=== PATIENT | male | born 1970 | race Caucasian/White ===

== ENCOUNTER 2019-05-31 11:52 | Emergency (ER) | payer OTHER ==
[2019-05-31 12:45] LABS: Basophils # (A) 0.1 k/uL (0-0.2); Basophils % (A) 1 %; Eosinophils # (A) 0.1 k/uL (0-0.7); Eosinophils % (A) 2 %; HCT 51.8 % (39.0-53.0); HGB 17.3 gm/dL (13.0-17.5); Lymphocytes # (A) 1.9 k/uL (1.0-4.8); Lymphocytes % (A) 28 %; MCH 34.4 pg (25.0-35.0); MCHC 33.4 g/dL (31.0-37.0); Macrocytosis Slight; Mean Platelet Volume 9.3; Monocytes # (A) 0.4 k/uL (0-1.0); Monocytes % (A) 6 %; Neutrophils % (A) 61 %; RBC 5.03 m/uL (4.30-5.90); WBC 6.7 k/uL (3.8-10.6)
[2019-05-31 12:53] LABS: ALT 169 U/L (21-72); AST 210 U/L (17-59); African American GFR (CKD) >90 (>60 ml/min/1.73 sqM); Albumin 4.1 g/dL (3.5-5.0); Alkaline Phosphatase 59 U/L (38-126); Anion Gap 13 mmol/L; Blood Urea Nitrogen 18 mg/dL (9-20); Calcium 9.3 mg/dL (8.4-10.2); Carbon Dioxide 21 mmol/L (22-30); Chloride 100 mmol/L (98-107); Glucose 124 mg/dL (74-99); INR 1.3 (<1.2); Partial Thromboplastin Time 28.9 sec (22.0-30.0); Potassium 4.3 mmol/L (3.5-5.1); Prothrombin Time 13.4 sec (9.0-12.0); Sodium 134 mmol/L (137-145); Total Bilirubin 1.8 mg/dL (0.2-1.3); Total Protein 7.3 g/dL (6.3-8.2)
[2019-05-31 13:04] LABS: Platelet Count 89 k/uL (150-450)
[2019-05-31 13:05] LABS: Basophilic Stippling Present
--- NOTE | 2019-05-31 13:45 | ED ---
General Adult HPI - General Chief complaint: Extremity Problem,Nontraumatic Stated complaint: Poss blood clot Time Seen by Provider: 05/31/19 12:00 Source: patient, family Mode of arrival: wheelchair Limitations: no limitations - History of Present Illness Initial comments: The patient is a 48-year-old male with past medical history of A. fib and lower extremity DVT who presents emergency room with reported bilateral lower extremity swelling. States the swelling has been present for 3 days. He denies any numbness, tingling or pain in his lower extremities. He is concerned for DVT as he has a history of DVT in the past. States he had a cardiac ablation and shortly afterwards developed a blood clot. This required him to have multiple endovascular surgeries on his lower extremities. He was on Coumadin for 6 months and was then taken off. This was approximately 4 years ago. Reports to shortness of breath. States he cannot lay flat while sleeping. Also admits to an exertional shortness of breath. Denies a history of PE. The patient has a history of atrial fibrillation. He presents and is currently in A. fib. 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 Director Telemetry who is Dr. Rascon did state that he was in A. fib and adjust the patient's medications. He put him on Toprol 50 mg twice a day. Patient did take his medications this morning around 8 AM. Denies any missed doses. He is not on any anticoagulation currently. He denies any chest pain. No ripping or tearing sensation to his back. He denies a history of congestive heart failure. No abdominal pain. There are no alleviating, precipitating or modifying factors - Related Data Home Medications Medication Instructions Recorded Confirmed Aspirin 81 mg PO HS 01/05/16 05/31/19 Metoprolol Tartrate [Lopressor] 50 mg PO BID 05/31/19 05/31/19 Allergies Allergy/AdvReac Type Severity Reaction Status Date / Time No Known Allergies Allergy Verified 05/31/19 12:25 Review of Systems ROS Statement: Those systems with pertinent positive or pertinent negative responses have been documented in the HPI. ROS Other: All systems not noted in ROS Statement are negative. Past Medical History Past Medical History: Atrial Fibrillation, Hypertension Additional Past Medical History / Comment(s): tachycardia History of Any Multi-Drug Resistant Organisms: None Reported Past Surgical History: Orthopedic Surgery Additional Past Surgical History / Comment(s): cardiac ablation Past Psychological History: No Psychological Hx Reported Smoking Status: Current every day smoker Past Alcohol Use History: Daily, Heavy Past Drug Use History: None Reported, Marijuana General Exam Limitations: no limitations General appearance: alert, in no apparent distress Head exam: Present: atraumatic, normocephalic Eye exam: Present: normal appearance, PERRL, EOMI ENT exam: Present: normal exam, mucous membranes moist Neck exam: Present: normal inspection Respiratory exam: Present: rales (at the bases) Cardiovascular Exam: Present: tachycardia, irregular rhythm GI/Abdominal exam: Present: soft. Absent: distended, tenderness, guarding Extremities exam: Present: pedal edema (b/l pedal edema) Neurological exam: Present: alert, oriented X3, CN II-XII intact Psychiatric exam: Present: normal affect, normal mood Skin exam: Present: warm, dry, intact Course Vital Signs 05/31/19 05/31/19 05/31/19 11:55 12:26 12:38 Temperature 97.5 F L Pulse Rate 72 154 H Respiratory 18 16 18 Rate Blood Pressure 154/36 107/90 O2 Sat by Pulse 100 98 Oximetry 05/31/19 05/31/19 05/31/19 13:36 14:27 15:33 Temperature Pulse Rate 130 H 140 H 138 H Respiratory 18 16 16 Rate Blood Pressure 106/79 96/80 111/88 O2 Sat by Pulse 100 99 97 Oximetry 05/31/19 15:54 Temperature 98.9 F Pulse Rate 114 H Respiratory 16 Rate Blood Pressure 104/90 O2 Sat by Pulse 96 Oximetry EKG Findings - EKG Comments: EKG Findings:: EKG at 1238 demonstrates atrial fibrillation with a rapid ventricular response of 152. QRS 84. QTC 492. There are no acute ST segment elevations or depressions concerning for ischemic changes. A second EKG also performed at this time demonstrates multiple PVCs. Rate is 145. QRS 84. QTC 475. Medical Decision Making - Medical Decision Making Upon arrival the patient is placed into room 28. He is hooked up to continuous pulse ox and cardiac monitoring. A 12-lead EKG was performed on the patient which demonstrates atrial fibrillation with a rapid ventricular response. Vitals have been obtained and the patient's blood pressure stable at this time. I did perform a thorough history and physical exam. I performed Doppler ultrasound to evaluate for pulses in bilateral lower extremities which were audible. I also performed a bedside cardiac ultrasound. Cardiac probe was utilized using a parasternal long axis and parasternal short axis. It is remarkable for a dilated right ventricle. Peripheral IV is established. I did recommend laboratory studies as well as a CT PE study of the patient's chest. He was also sent for lower extremity Dopplers. Upon return of the results they are reviewed. The patient has a platelet count of 89. He does have a BNP elevated at 12,100. CT of the chest reveals pulmonary embolus in the right main pulmonary artery extending through segmental branches of the right upper lobe with separate embolus in the segmental branch of the right lower lobe. Constellation of findings suggestive of congestive heart failure and include cardiomegaly, interstitial edema and bilateral pleural effusions. Ultrasound of the bilateral lower extremities demonstrates an occlusive DVT within the right distal popliteal vein and proximal calf veins which may be acute. Incompletely compressible distal left popliteal vein suggesting a chronic nonocclusive throm bus. This information is provided to the patient. He was initiated on a heparin drip with a 4000 unit bolus. He was also started on a Cardizem drip. I called and discussed the case with Dr. Melchor who did recommend transfer to [facility] for thrombolysis. He request a stat echo upon arrival. I did call and discuss this with Dr. Garibay at [facility]. She does accept transfer the patient. The patient remained in stable condition and was transferred - Lab Data Result diagrams: 05/31/19 12:35 05/31/19 12:35 Lab Results 05/31/19 05/31/19 05/31/19 Range/Units 12:35 12:35 12:35 WBC 6.7 (3.8-10.6) k/uL RBC 5.03 (4.30-5.90) m/uL Hgb 17.3 (13.0-17.5) gm/dL Hct 51.8 (39.0-53.0) % MCV 103.0 H (80.0-100.0) fL MCH 34.4 (25.0-35.0) pg MCHC 33.4 (31.0-37.0) g/dL RDW 15.0 (11.5-15.5) % Plt Count 89 L (150-450) k/uL Neutrophils % 61 % Lymphocytes % 28 % Monocytes % 6 % Eosinophils % 2 % Basophils % 1 % Neutrophils # 4.0 (1.3-7.7) k/uL Lymphocytes # 1.9 (1.0-4.8) k/uL Monocytes # 0.4 (0-1.0) k/uL Eosinophils # 0.1 (0-0.7) k/uL Basophils # 0.1 (0-0.2) k/uL Manual Slide Review Performed Basophilic Stippling Present Macrocytosis Slight PT 13.4 H (9.0-12.0) sec INR 1.3 H (<1.2) APTT 28.9 (22.0-30.0) sec Sodium 134 L (137-145) mmol/L Potassium 4.3 (3.5-5.1) mmol/L Chloride 100 (98-107) mmol/L Carbon Dioxide 21 L (22-30) mmol/L Anion Gap 13 mmol/L BUN 18 (9-20) mg/dL Creatinine 0.98 (0.66-1.25) mg/dL Est GFR (CKD-EPI)AfAm >90 (>60 ml/min/1.73 sqM) Est GFR (CKD-EPI)NonAf >90 (>60 ml/min/1.73 sqM) Glucose 124 H (74-99) mg/dL Calcium 9.3 (8.4-10.2) mg/dL Magnesium 2.0 (1.6-2.3) mg/dL Total Bilirubin 1.8 H (0.2-1.3) mg/dL AST 210 H (17-59) U/L ALT 169 H (21-72) U/L Alkaline Phosphatase 59 (38-126) U/L Troponin I (0.000-0.034) ng/mL NT-Pro-B Natriuret Pep pg/mL Total Protein 7.3 (6.3-8.2) g/dL Albumin 4.1 (3.5-5.0) g/dL 05/31/19 05/31/19 Range/Units 12:35 12:35 WBC (3.8-10.6) k/uL RBC (4.30-5.90) m/uL Hgb (13.0-17.5) gm/dL Hct (39.0-53.0) % MCV (80.0-100.0) fL MCH (25.0-35.0) pg MCHC (31.0-37.0) g/dL RDW (11.5-15.5) % Plt Count (150-450) k/uL Neutrophils % % Lymphocytes % % Monocytes % % Eosinophils % % Basophils % % Neutrophils # (1.3-7.7) k/uL Lymphocytes # (1.0-4.8) k/uL Monocytes # (0-1.0) k/uL Eosinophils # (0-0.7) k/uL Basophils # (0-0.2) k/uL Manual Slide Review Basophilic Stippling Macrocytosis PT (9.0-12.0) sec INR (<1.2) APTT (22.0-30.0) sec Sodium (137-145) mmol/L Potassium (3.5-5.1) mmol/L Chloride (98-107) mmol/L Carbon Dioxide (22-30) mmol/L Anion Gap mmol/L BUN (9-20) mg/dL Creatinine (0.66-1.25) mg/dL Est GFR (CKD-EPI)AfAm (>60 ml/min/1.73 sqM) Est GFR (CKD-EPI)NonAf (>60 ml/min/1.73 sqM) Glucose (74-99) mg/dL Calcium (8.4-10.2) mg/dL Magnesium (1.6-2.3) mg/dL Total Bilirubin (0.2-1.3) mg/dL AST (17-59) U/L ALT (21-72) U/L Alkaline Phosphatase (38-126) U/L Troponin I <0.012 (0.000-0.034) ng/mL NT-Pro-B Natriuret Pep 69424 pg/mL Total Protein (6.3-8.2) g/dL Albumin (3.5-5.0) g/dL Disposition Clinical Impression: Acute pulmonary embolism, Chronic deep vein thrombosis (DVT) of left lower extremity, Acute deep vein thrombosis (DVT) of right lower extremity, Heart failure, Thrombocytopenia Disposition: OTHER INSTITUTION NOT DEFINED Condition: Serious Is patient prescribed a controlled substance at d/c from ED?: No Referrals: None,Stated [Primary Care Provider] - 1-2 days Time of Disposition: 15:18 - Out of Hospital Transfer - Req. Specs Out of Hospital Transfer - Requested Specifics: Other Emergency Center ([facility])
--- NOTE | 2019-05-31 14:05 | CT ---
EXAMINATION TYPE: CT chest angio for PE DATE OF EXAM: 05/31/2019 COMPARISON: Chest radiograph 01/05/2016 HISTORY: Difficulty breathing on exertion CT DLP: 333.6 mGycm Automated exposure control for dose reduction was used. CONTRAST: CT Chest for pulmonary embolism performed with with IV Contrast, patient injected with 100 mL of Isov ue 370. FINDINGS: No focal airspace consolidation. Rounded area of groundglass attenuation within the left lower lobe m easures 1.3 x 1.4 cm TR x CC (series 3 image 46). There is smooth interstitial bibasilar thickening a nd small right greater than left pleural effusions. The heart is enlarged, particularly the left atri um and left ventricle with bowing of the interventricular septum into the right ventricle. No pericar dial effusion. Centrilobular emphysematous change, mild in degree. There is a filling defect within the right main pulmonary artery extending into the right lobar throu gh subsegmental branches of the right upper lobe. Additional pulmonary arterial filling defect presen t within a segmental branch of the right lower lobe. No filling defects in the left pulmonary vascula ture. There is reflux of contrast into the hepatic veins and the infrahepatic inferior vena cava. Limited evaluation of the upper abdomen demonstrates reflux of contrast into the hepatic veins and in frahepatic inferior vena cava. Small volume ascites noted No aggressive osseous lesion. Mild to moderate degenerative changes of the thoracic spine. IMPRESSION: 1. Pulmonary embolus in the right main pulmonary artery extending through segmental branches of the r ight upper lobe with separate embolus in segmental branch of the right lower lobe. 2. Constellation of findings are suggestive of congestive heart failure and include cardiomegaly, int erstitial edema, and small bilateral pleural effusions. 3. Reflux of contrast into the hepatic veins and intrahepatic inferior vena cava is favored to be sec ondary to congestive heart failure over right heart dysfunction. Correlation with echocardiogram is r ecommended. 4. Nodular area of groundglass opacification within the left lower lobe may relate to edema given abo ve findings however low-grade neoplastic process could have a similar appearance and a follow-up CT i n 6 months is recommended to evaluate for persistence. The findings and recommendations were called to Sharon Ayers by Asia Downey at 2:03 PM on 05/31/2019 .
--- NOTE | 2019-05-31 14:19 | US ---
EXAM: US Duplex Bilateral Lower Extremity Veins CLINICAL HISTORY: Bilateral leg swelling and pain. Shortness of breath. Patient states history of DVT left leg approx 4 yrs ago, currently not on blood thinners TECHNIQUE: Real-time duplex ultrasound scan of the bilateral lower extremity veins integrating B-mode two-dimensional vascular structure, Doppler spectral analysis, color flow Doppler imaging and compression. COMPARISON: No relevant prior studies available. FINDINGS: Right deep veins: DVT within the right distal popliteal vein and proximal calf veins, evidenced by echogenic thrombus and noncompressible veins with lack of Doppler flow. Patent Doppler flow in the right external iliac, common femoral, superficial femoral vein, and proximal portions of the popliteal vein. Right superficial veins: Unremarkable. No thrombus in the visualized right great saphenous vein. Left deep veins: Incompletely compressible distal left popliteal vein suggests a chronic nonocclusive thrombus.. No DVT in the left common femoral, femoral, proximal deep femoral or proximal popliteal veins, which demonstrate normal color flow, are normally compressible, with normal phasic flow and/or augmentation response. Left superficial veins: Unremarkable. No thrombus in the visualized left great saphenous vein. Soft tissues: No popliteal cyst. IMPRESSION: 1. Occlusive DVT within the right distal popliteal vein and proximal calf veins, which may be acute. 2. Incompletely compressible distal left popliteal vein suggests a chronic nonocclusive thrombus. <MYCVCSECTION> Critical Value Communications 05/31/19 14:21 Call Doctor Regarding Acute DVT, called Dr. Ayers on 05/31 14:21 (-04:00)
[2019-05-31 14:28] VITALS: RESP 16
[2019-05-31] MEDS ORDERED: HEPARIN SODIUM,PORCINE 10,000 UNIT/ML 1 ML VIAL IV ONE (14:41)
[2019-05-31] MEDS ORDERED: HEPARIN SODIUM,PORCINE 5,000 UNIT/ML 1 ML VIAL IV PRN (14:41)
[2019-05-31] MEDS ORDERED: HEPARIN SOD,PORK IN 0.45% NACL 25,000 UNIT in 0.45% NACL 1 250ML.BAG IV SCH (14:45)
[2019-05-31] MEDS ORDERED: DILTIAZEM 125 MG in SODIUM CHLORIDE 0.9% 100 ML IV SCH (15:00)
[2019-05-31] MEDS ORDERED: DILTIAZEM DRIP BOLUS FROM BAG 1 MG SOLN IV ONE (15:50)
[2019-05-31 15:55] VITALS: BP 104/90; PULSE 114; TEMP 98.9
== END 2019-05-31 15:55 | disposition other institution (70) ==
LOC: EC 11:52
DX: I82.401 Acute embolism and thrombosis of unspecified deep veins of right lower extremity (principal); I26.99 Other pulmonary embolism without acute cor pulmonale; I82.502 Chronic embolism and thrombosis of unspecified deep veins of left lower extremity; I11.0 Hypertensive heart disease with heart failure; I50.9 Heart failure, unspecified; D69.6 Thrombocytopenia, unspecified; I48.91 Unspecified atrial fibrillation; F17.200 Nicotine dependence, unspecified, uncomplicated; Z79.82 Long term (current) use of aspirin; Z79.01 Long term (current) use of anticoagulants; Z79.899 Other long term (current) drug therapy
CPT/HCPCS: 99285; 96374; 36415; 93005; 83880; 80053; 83735; 84484; 85025; 85610; 85730; 93970; 71275; J1644 ×2; Q9967

== ENCOUNTER → 2019-08-24 | Outpatient (CLI) | payer OTHER ==
--- NOTE | 2019-08-25 10:21 | US ---
EXAMINATION TYPE: US abdomen complete DATE OF EXAM: 08/24/2019 COMPARISON: NONE CLINICAL HISTORY: R94.5. Patient has lost 55lbs this past year, unplanned, last 20lbs since May . Stop excessive drinking in April. EXAM MEASUREMENTS: Liver Length: 14.9 cm Gallbladder Wall: 0.2 cm CBD: 0.5 cm Spleen: 12.6 cm Right Kidney: 10.7 x 4.6 x 4.7 cm Left Kidney: 11.6 x 5.0 x 6.4 cm very thin patient with bowel gas made imaging difficult. Pancreas: not seen due to bowel gas Liver: intercostal imaging only appears wnl Gallbladder: wnl Evidence for sonographic King's sign: no CBD: wnl Spleen: wnl Right Kidney: wnl Left Kidney: wnl Upper IVC: wnl Abd Aorta: prox and mid obscured by bowel gas The liver is homogenous. The intrahepatic portion of the IVC and proximal abdominal aorta are within normal limits. There is no evidence of cholelithiasis. Common bile duct is unremarkable. The visu alized portions of the pancreas are homogenous. The spleen is unremarkable. Kidneys are symmetric a nd free of hydronephrosis. No renal lesions are seen. IMPRESSION: No distinct abnormality appreciated.
--- NOTE | 2019-08-25 10:45 | US ---
EXAMINATION TYPE: US thyroid st tissue head/neck DATE OF EXAM: 08/24/2019 COMPARISON: NONE CLINICAL HISTORY: R22.0. 55lb weight loss this year, abn labs GLAND SIZE: Right Lobe: 5.2 x 2.1 x 2.7 cm Overall Parenchyma: heterogenous Left Lobe: 5.2 x 1.7 x 2.4 cm Overall Parenchyma: heterogeneous Isthmus Thickness: 0.3 cm NODULES RIGHT: # of nodules measured on right: 0 LEFT: # of nodules measured on left: 0 ISTHMUS: # of nodules measured in the isthmus: 0 Bilateral neck scanned, no evidence of lymphadenopathy. IMPRESSION: Nonspecific thyroid glandular enlargement and heterogeneity. Correlate with thyroid function testing.
== END | disposition home or self-care (01) ==
LOC: RADUSMAIN 17:00
PROVIDERS: ATTEND Family Medicine
DX: E04.9 Nontoxic goiter, unspecified (principal); R94.5 Abnormal results of liver function studies
CPT/HCPCS: 76536; 76700

== ENCOUNTER 2019-11-22 14:22 | Emergency (ER) | payer OTHER ==
[2019-11-22 14:34] VITALS: BP 125/84; PULSE 60; RESP 18; TEMP 97.8
[2019-11-22] MEDS ORDERED: GLYCERIN ADULT SUPPOSITORY 1 EACH RECTAL STA (14:59)
--- NOTE | 2019-11-22 15:08 | ED ---
Abdominal Pain HPI - General Chief Complaint: Abdominal Pain Stated Complaint: constipated Time Seen by Provider: 11/22/19 14:36 Source: patient Mode of arrival: ambulatory Limitations: no limitations - History of Present Illness Initial Comments: Patient is a 49-year-old male presenting to emergency Department with a chief complaint of constipation. States ever since May, he has been on multiple cardiac medications and has developed constipation. States typically he only has 1-2 bowel movements weekly. States the last bowel movement was at least 5 days ago. States she has tried some MiraLAX for the last few days with no success. Denies taking any stool softeners or laxatives. Denies any abdominal distention or bloating. Denies nausea vomiting diarrhea. Denies any night sweats or chills. States this is somewhat typical for him. He attempted to manually disimpact himself with minimal improvement. - Related Data Home Medications Medication Instructions Recorded Confirmed Aspirin 81 mg PO HS 01/05/16 11/22/19 Metoprolol Tartrate [Lopressor] 50 mg PO BID 05/31/19 11/22/19 Amiodarone [Cordarone] 400 mg PO DAILY 11/22/19 11/22/19 Atorvastatin [Lipitor] 40 mg PO HS 11/22/19 11/22/19 Ergocalciferol [Vitamin D2] 50,000 unit PO Q7D 11/22/19 11/22/19 Levothyroxine Sodium [Synthroid] 25 mcg PO DAILY 11/22/19 11/22/19 Lisinopril [Zestril] 2.5 mg PO DAILY 11/22/19 11/22/19 Polyethylene Glycol 3350 [Miralax] 17 gm PO DAILY 11/22/19 11/22/19 Warfarin [Coumadin] 2.5 mg PO HS 11/22/19 11/22/19 Previous Rx's Medication Instructions Recorded Docusate [Colace] 100 mg PO BID #30 capsule 11/22/19 Allergies Allergy/AdvReac Type Severity Reaction Status Date / Time No Known Allergies Allergy Verified 11/22/19 15:29 Review of Systems ROS Statement: Those systems with pertinent positive or pertinent negative responses have been documented in the HPI. ROS Other: All systems not noted in ROS Statement are negative. Past Medical History Past Medical History: Atrial Fibrillation, Hypertension, Thyroid Disorder Additional Past Medical History / Comment(s): tachycardia History of Any Multi-Drug Resistant Organisms: None Reported Past Surgical History: Orthopedic Surgery Additional Past Surgical History / Comment(s): cardiac ablation Past Psychological History: No Psychological Hx Reported Smoking Status: Current every day smoker Past Alcohol Use History: Daily, Heavy Past Drug Use History: Marijuana General Exam Limitations: no limitations General appearance: alert, in no apparent distress Head exam: Present: atraumatic, normocephalic, normal inspection Eye exam: Present: normal appearance Pupils: Present: normal accommodation ENT exam: Present: normal exam Neck exam: Present: normal inspection, full ROM Respiratory exam: Present: normal lung sounds bilaterally Cardiovascular Exam: Present: regular rate, normal rhythm, normal heart sounds GI/Abdominal exam: Present: soft. Absent: distended, tenderness, guarding Extremities exam: Present: normal inspection, full ROM Back exam: Present: normal inspection, full ROM Neurological exam: Present: alert, oriented X3 Psychiatric exam: Present: normal affect, normal mood Skin exam: Present: warm, dry, intact, normal color Course Vital Signs 11/22/19 14:31 Temperature 97.8 F Pulse Rate 60 Respiratory 18 Rate Blood Pressure 125/84 O2 Sat by Pulse 98 Oximetry Medical Decision Making - Medical Decision Making Patient is a 49-year-old male with history of constipation presenting to emergency Department with a chief complaint of constipation. Patient has not had a movement at least 5 days. KUB shows nonacute abdomen. Patient was initially given a glycerin suppository minimal improvement. Patient was given a milk of molasses enema. Patient did have a large bowel movement and felt much better afterwards. Patient was prescribed a stool softener advised to take dose daily. He was advised to eat a high-fiber diet. Patient was also given magnesium citrate for the next any develops severe constipation. Return paramet ers were thoroughly discussed with patient was understanding and agreeable. Case discussed with physician. Disposition Clinical Impression: Constipation Disposition: HOME SELF-CARE Condition: Stable Instructions (If sedation given, give patient instructions): Constipation (DC), High Fiber Diet (ED) Additional Instructions: Take prescribed medication as directed. Eat a high-fiber diet. Return to emergency department if symptoms worsen. Prescriptions: Docusate [Colace] 100 mg PO BID #30 capsule Is patient prescribed a controlled substance at d/c from ED?: No Referrals: Katharine Miller MD [Primary Care Provider] - 1-2 days Time of Disposition: 16:46
--- NOTE | 2019-11-22 15:13 | XR ---
EXAMINATION TYPE: XR KUB DATE OF EXAM: 11/22/2019 COMPARISON: NONE HISTORY: Constipation TECHNIQUE: 2 views upright FINDINGS: There is no sign of intestinal obstruction or pneumoperitoneum. Fecal pattern is fairly nor mal. Lung bases are clear. There are no pathologic calcifications over the kidneys. IMPRESSION: Nonacute abdomen.
[2019-11-22] MEDS ORDERED: MAGNESIUM CITRATE 296 ML BOTTLE PO ONE (16:13)
== END 2019-11-22 16:56 | disposition home or self-care (01) ==
LOC: EC 14:22
DX: K59.00 Constipation, unspecified (principal); I10 Essential (primary) hypertension; I48.91 Unspecified atrial fibrillation; E07.9 Disorder of thyroid, unspecified; F17.200 Nicotine dependence, unspecified, uncomplicated; Z79.01 Long term (current) use of anticoagulants; Z79.82 Long term (current) use of aspirin; Z79.899 Other long term (current) drug therapy
CPT/HCPCS: 74018; 99284

== ENCOUNTER → 2019-12-09 | Outpatient (CLI) | payer OTHER ==
--- NOTE | 2019-12-10 11:45 | CT ---
EXAMINATION TYPE: CT abdomen pelvis wo con DATE OF EXAM: 12/09/2019 COMPARISON: None HISTORY: abnormal weight loss CT DLP: 319.4 mGycm Automated exposure control for dose reduction was used. TECHNIQUE: Helical acquisition of images was performed from the lung bases through the pelvis. FINDINGS: LUNG BASES: Lungs are clear. The heart is mildly enlarged.. LIVER/GB: No significant abnormality is appreciated. PANCREAS: No significant abnormality is seen. SPLEEN: No significant abnormality is seen. ADRENALS: No significant abnormality is seen. KIDNEYS: No significant abnormality is seen. ADENOPATHY: None visualized. OSSEOUS STRUCTURES: Hypertrophic and degenerative change of the spine noted. BOWEL: Bowel gas pattern nonspecific. No diagnostic evidence of obstruction. Mild thickening of the wall the gastric antrum. OTHER: Atherosclerotic change aorta. No free fluid. Prostate gland is prominent. IMPRESSION: 1. MILD WALL THICKENING OF THE GASTRIC ANTRUM MAY BE RELATED TO INCOMPLETE DISTENTION RATHER THAN PEP TIC ULCER DISEASE OR GASTRITIS. CORRELATE WITH DIRECT VISUALIZATION CLINICALLY WARRANTED. 2. MILD HAZINESS TO THE SUBCUTANEOUS FAT CAN BE ASSOCIATED WITH MILD ANASARCA CORRELATE CLINICALLY. 3. PROSTATE GLAND IS PROMINENT CORRELATE WITH PSA...
== END | disposition home or self-care (01) ==
LOC: RADCTMAIN 14:16
PROVIDERS: ATTEND Family Medicine
DX: K31.89 Other diseases of stomach and duodenum (principal)
CPT/HCPCS: 74176

== ENCOUNTER → 2020-02-18 | Outpatient (CLI) | payer OTHER ==
--- NOTE | 2020-02-18 13:38 | FL ---
EXAMINATION TYPE: FL UGI air w small bowel DATE OF EXAM: 02/18/2020 COMPARISON: NONE HISTORY: Surgery, weight loss TECHNIQUE: A tear contrast UGI study is performed with small bowel follow through. FINDINGS: Cnc Lathe Machine Operator image of the abdomen shows no gross abnormality. The esophagus shows normal motility and emptying into the stomach. No evidence of hiatal hernia or s tricture noted. The stomach shows normal distensibility, peristalsis, and mucosal folds. No evidence of any mass or ulcer disease. No significant esophageal reflux was seen during real time performance of this study. The duodenal bulb and sweep are unremarkable. The small bowel study shows normal transit to the colon in less than 200 minutes. There is normal mu cosal fold pattern throughout the small bowel. There is no evidence of any stricture or filling defe ct noted. The terminal ileum is unremarkable. IMPRESSION: Unremarkable upper GI study and small bowel follow through.
== END | disposition home or self-care (01) ==
LOC: RADFLMAIN 07:47
PROVIDERS: ATTEND Family Medicine
DX: K27.9 Peptic ulcer, site unspecified, unspecified as acute or chronic, without hemorrhage or perforation (principal); R93.819 Abnormal radiologic findings on diagnostic imaging of unspecified testicle
CPT/HCPCS: 74240; 74248

== ENCOUNTER → 2020-03-25 | Outpatient (CLI) | payer OTHER ==
[2020-03-25 09:22] LABS: African American GFR (CKD) >90 (>60 ml/min/1.73 sqM); Blood Urea Nitrogen 15 mg/dL (9-20); Non-African American GFR(CKD) >90 (>60 ml/min/1.73 sqM)
--- NOTE | 2020-03-25 10:30 | CT ---
EXAMINATION TYPE: CT angio chest DATE OF EXAM: 03/25/2020 COMPARISON: 05/31/2019 HISTORY: Follow up PE from May 2019. Continued symptoms. CT DLP: 225.3 mGycm CONTRAST: CT chest with contrast and 3D reconstruction with MIP imaging is performed with IV Contrast, patient injected with 100 mL of Isovue 370. Contrast-enhanced CT of the chest was performed through the course of the pulmonary arteries with jimmy g and mediastinal window settings submitted. 3D reconstruction with MIP imaging was also performed. PULMONARY ARTERIES: The pulmonary arteries and their major tributaries are patent. I do not see oneil dence for sizable filling defect to suggest pulmonary embolic process. LUNGS: The lungs are clear and free of infiltrate. No evidence for atelectasis. No pulmonary nodule or mass is detected. No pleural effusion. MEDIASTINUM: Thoracic aorta is of normal caliber,however, evaluation is limited given timing of the contrast bolus. If there is concern for thoracic aortic pathology consider GLENNA. Correlate clinicall y . The heart is not enlarged. No evidence for mediastinal mass. No mediastinal lymph nodes greater than 1cm. HILAR STRUCTURES: No evidence for mass. No hilar lymph nodes greater than 1 cm. UPPER ABDOMEN: No significant abnormality is seen. IMPRESSION: 1. No evidence for Pulmonary embolism at this time.
== END | disposition home or self-care (01) ==
LOC: RADCTMAIN 08:44
PROVIDERS: ATTEND Internal Medicine Critical Care Medicine
DX: R06.00 Dyspnea, unspecified (principal)
CPT/HCPCS: 82565; 84520; 71275; 36415; Q9967

== ENCOUNTER → 2020-03-30 | Outpatient (CLI) | payer OTHER | END | disposition home or self-care (01) | LOC: CPPFTMAIN 08:36 | PROVIDERS: ATTEND Internal Medicine Critical Care Medicine | DX: I26.99 Other pulmonary embolism without acute cor pulmonale (principal) | CPT/HCPCS: 94060; 94726; 94729 ==

== ENCOUNTER → 2020-04-18 | Outpatient (CLI) | payer OTHER ==
[~2020-04-18] MED LIST: COSYNTROPIN 0.25 MG VIAL IVP ONE; SODIUM CHLORIDE 0.9% 500 ML 500 ML in EMPTY BAG 1 BAG IV PRN
[2020-04-18 08:16] VITALS: BP 109/72; PULSE 57; RESP 18; TEMP 97.5
== END | disposition home or self-care (01) ==
LOC: PROCWHC3 07:34
PROVIDERS: ATTEND Internal Medicine
DX: R63.4 Abnormal weight loss (principal)
CPT/HCPCS: 82533; 82024; 96374; J0834

== ENCOUNTER → 2020-05-09 | Outpatient (CLI) | payer OTHER ==
--- NOTE | 2020-05-09 21:39 | MR ---
EXAMINATION TYPE: MR brain wo/w con DATE OF EXAM: 05/09/2020 COMPARISON: NONE HISTORY: 49-year-old female Vision changes, numbness in hands/feet TECHNIQUE: Multiplanar, multisequence images of the brain and brainstem were acquired before and aft er administration of 7 mL IV Gadavist. Diffusion weighted imaging is performed. FINDINGS: No evidence for acute infarction, hemorrhage, mass, mass effect, midline shift, herniation, effacemen t of basal cisterns, or extra-axial fluid collection. There is moderate generalized supratentorial and infratentorial volume loss. T2/FLAIR weighted sequences show moderate scattered bright white matter foci within the subcortical, deep, and periventricular regions of both cerebral hemispheres out of proportion to the patient's age . No enhancing foci or enhancing intracranial lesions are seen. Dural venous sinuses are patent. Midline structures demonstrate normal morphology. The craniocervical junction is normal. The visualized sinuses are clear and the globes are intact. IMPRESSION: 1. No acute intracranial abnormality seen. No enhancing lesions. 2. Moderate generalized atrophy. 3. Moderate burden of scattered bright white matter change, out of proportion to the patient's age. F indings may reflect accelerated changes of chronic small vessel ischemic disease, demyelinating disea se, chronic migraines, or vasculitis such as Lyme's disease. Clinically correlate.
== END | disposition home or self-care (01) ==
LOC: RADMRIMAIN 13:39
PROVIDERS: ATTEND Family Medicine
DX: G31.9 Degenerative disease of nervous system, unspecified (principal); H53.9 Unspecified visual disturbance; R20.2 Paresthesia of skin
CPT/HCPCS: 70553; A9585

== ENCOUNTER → 2020-05-10 | Outpatient (CLI) | payer OTHER ==
--- NOTE | 2020-05-10 18:03 | MR ---
EXAMINATION TYPE: MR pituitary wo/w con DATE OF EXAM: 05/10/2020 COMPARISON: Correlation MRI brain performed 05/09/2020 HISTORY: 49-year-old male Vision changes, numbness in hands/feet Technique: Multiplanar, multisequence images of the sella were obtained before and after administrati on of 7 mL intravenous Gadavist gadolinium contrast. FINDINGS: The sella turcica is not enlarged. A partially empty sella is noted. No abnormal enlargement of the pituitary gland. Normal T1 bright si gnal the posterior pituitary. There is no intra or suprasellar mass. Pituitary stalk is seen enhancing with contrast and not displaced. The optic chiasm and anterior third ventricle are well visualized and not displaced or compressed. Brain reported separately yesterday. IMPRESSION: Partially empty sella incidentally noted. No sellar or suprasellar lesion identified.
== END | disposition home or self-care (01) ==
LOC: RADMRIMAIN 13:45
PROVIDERS: ATTEND Family Medicine
DX: H53.9 Unspecified visual disturbance (principal); R20.2 Paresthesia of skin
CPT/HCPCS: 70553; A9585

== ENCOUNTER 2020-05-16 12:05 | Emergency (ER) | payer OTHER ==
--- NOTE | 2020-05-16 13:30 | XR ---
EXAMINATION TYPE: XR KUB DATE OF EXAM: 05/16/2020 Comparison: None Clinical History: 49-year-old male constipated Findings: Lung bases are clear. No evidence for free intraperitoneal air. Mild stool within the descending colon and sigmoid colon and also mild within the cecum. Nonobstructive bowel gas pattern. No dilated small bowel or air-fluid levels. No suspicious calcifications seen. Impression: Mild overall stool burden. No evidence for free air or bowel obstruction.
[2020-05-16 13:43] LABS: Basophils % (A) 0 %; Eosinophils # (A) 0.1 k/uL (0-0.7); Eosinophils % (A) 1 %; HGB 15.2 gm/dL (13.0-17.5); Lymphocytes % (A) 17 %; MCH 32.5 pg (25.0-35.0); MCHC 33.1 g/dL (31.0-37.0); MCV 98.4 fL (80.0-100.0); Mean Platelet Volume 7.3; Monocytes # (A) 0.3 k/uL (0-1.0); Monocytes % (A) 5 %; Neutrophils # (A) 4.5 k/uL (1.3-7.7); Neutrophils % (A) 74 %; Platelet Count 136 k/uL (150-450); RBC 4.68 m/uL (4.30-5.90); RDW 12.4 % (11.5-15.5)
[2020-05-16] MEDS ORDERED: MAGNESIUM HYDROXIDE 2,400 MG/10 ML CUP PO PRN (13:54)
[2020-05-16 13:56] LABS: ALT 22 U/L (4-49); African American GFR (CKD) >90 (>60 ml/min/1.73 sqM); Albumin 4.4 g/dL (3.5-5.0); Anion Gap 8 mmol/L; Blood Urea Nitrogen 12 mg/dL (9-20); Calcium 9.3 mg/dL (8.4-10.2); Carbon Dioxide 25 mmol/L (22-30); Chloride 101 mmol/L (98-107); Glucose 105 mg/dL (74-99); Non-African American GFR(CKD) >90 (>60 ml/min/1.73 sqM); Sodium 134 mmol/L (137-145); Total Bilirubin 1.3 mg/dL (0.2-1.3); Total Protein 7.4 g/dL (6.3-8.2)
[2020-05-16 13:57] LABS: AST 33 U/L (17-59); Alkaline Phosphatase 46 U/L (38-126); Potassium 4.3 mmol/L (3.5-5.1)
[2020-05-16] MEDS ORDERED: MAGNESIUM HYDROXIDE 2,400 MG/10 ML CUP PO STA (14:13)
--- NOTE | 2020-05-16 15:37 | XR ---
EXAMINATION TYPE: XR facial bones limited DATE OF EXAM: 05/16/2020 COMPARISON: NONE HISTORY: 49-year-old male left gum and jaw pain TECHNIQUE: 2 views FINDINGS: Orbits appear symmetrical. Nasal septum is midline. Patient is partially edentulous. Nasal bone and m axillary spine appear intact. No definite lytic destruction. The patient's right mandibular molar is impacted. IMPRESSION: Patient is partially edentulous. Impacted right mandibular molar. No lytic destruction identified rad iographically.
--- NOTE | 2020-05-16 15:46 | ED ---
ENT HPI - General Chief complaint: Dental/Oral Stated complaint: dental infection, hand/foot numbness Time Seen by Provider: 05/16/20 12:50 Source: patient, family Mode of arrival: ambulatory Limitations: no limitations - History of Present Illness Initial comments: 49-year-old male with history of "enhancement on CT", presenting to the emergency department today for chief complaint of one month of paresthesia of the hands and feet which he is currently undergoing evaluation by neurology for (no currently), left sided jaw and gum pain. Patient states he is missing teeth on his left lower jaw he states that if you touch the gums is very sensitive he states it feels similar 20s had abscess in the past. Patient states he has been on penicillin for 1 week. He states has not been helping. Patient denies a stye below the time of the neck he denies any chest pain shortness of breath chest pressure. Patient denies any back or neck pain. Patient states that he has not noticed any abscess in the mouth but the sensation is similar. Patient denies fevers. Patient also complaining of constipation states he stresses the daily and has to take laxatives. Patient states he has not had a bowel movement in 3 days. Patient denies any vomiting or abdominal pain. Denies headache nausea vomiting visual changes. Remaining review of systems negative upon arrival patient appears well besides acute distress - Related Data Home Medications Medication Instructions Recorded Confirmed Aspirin 81 mg PO HS 01/05/16 11/22/19 Metoprolol Tartrate [Lopressor] 50 mg PO DAILY 05/31/19 11/22/19 Amiodarone [Cordarone] 200 mg PO DAILY 11/22/19 11/22/19 Atorvastatin [Lipitor] 40 mg PO HS 11/22/19 11/22/19 Levothyroxine Sodium [Synthroid] 25 mcg PO DAILY 11/22/19 11/22/19 Warfarin [Coumadin] 2.5 mg PO HS 11/22/19 11/22/19 polyethylene glycoL 3350 [Miralax] 17 gm PO DAILY 11/22/19 11/22/19 Folic Acid 1 tab PO DAILY 04/18/20 04/18/20 amLODIPine [Norvasc] 1 tab PO DAILY 04/18/20 04/18/20 Previous Rx's Medication Instructions Recorded Docusate [Colace] 100 mg PO BID #30 capsule 11/22/19 Amoxic-Pot Clav 875-125Mg 1 tab PO Q12HR 7 Days #14 tab 05/16/20 [Augmentin 875-125] Allergies Allergy/AdvReac Type Severity Reaction Status Date / Time No Known Allergies Allergy Verified 05/16/20 12:20 Review of Systems ROS Statement: Those systems with pertinent positive or pertinent negative responses have been documented in the HPI. ROS Other: All systems not noted in ROS Statement are negative. Past Medical History Past Medical History: Atrial Fibrillation, Hypertension, Thyroid Disorder Additional Past Medical History / Comment(s): tachycardia History of Any Multi-Drug Resistant Organisms: None Reported Past Surgical History: Orthopedic Surgery Additional Past Surgical History / Comment(s): cardiac ablation Past Psychological History: No Psychological Hx Reported Smoking Status: Current every day smoker Past Alcohol Use History: None Reported Past Drug Use History: None Reported General Exam - General Exam Comments Initial Comments: General: The patient is awake and alert, in no distress, and does not appear acutely ill. Eye: +3 mm pupils are equal, round and reactive to light, extra-ocular movements are intact. No nystagmus. There is normal conjunctiva bilaterally. No signs of icterus. Ears, nose, mouth and throat: There are moist mucous membranes and no oral lesions. No teeth of the left lower jaw, no abscess, swelling there is pain to palpation of the gums. no swelling of face, below tongue or angle of the mandible. Neck: The neck is supple, there is no tenderness or JVD. Cardiovascular: There is a regular rate and rhythm. No murmur, rub or gallop is appreciated. Respiratory: Lungs are clear to auscultation, respirations are non-labored, breath sounds are equal. No wheezes, stridor, rales, or rhonchi. Gastrointestinal: Soft, non-distended, non-tender abdomen without masses or organomegaly noted. There is no rebound or guarding present. Musculoskeletal: Normal ROM, no tenderness. Strength 5/5. Sensation intact of the hands feet, UE and LE b/l. Radial pulses equal bilaterally 2+. Neurological: A&O x 3. CN II-XII intact, There are no obvious motor or sensory deficits. Coordination appears grossly intact. Speech is normal. Skin: Skin is warm and dry and no rashes or lesions are noted. Psychiatric: Cooperative, appropriate mood & affect, normal judgment. Limitations: no limitations Course Vital Signs 05/16/20 05/16/20 05/16/20 12:14 14:20 15:54 Temperature 97.6 F 98.0 F Pulse Rate 56 L 79 78 Respiratory 18 18 16 Rate Blood Pressure 122/80 123/86 115/86 O2 Sat by Pulse 100 99 99 Oximetry Medical Decision Making - Medical Decision Making 49-year-old male presented for multiple complaints. Constipation, month-long paresthesias of the hands and feet which have been evaluated by primary with MRI and is scheduled for neurology follow-up. No symptoms currently in regards to paresthesias. Sensation of the hands and feet bilaterally no other focal neurological deficits. Abdomen soft nontender. X-ray concerning for constipation no obstruction. No vomiting history. Patient comes are not erythematous there tender to touch. Maxilla xr revealed no bony lesions.Patient will be discharged with PCP, ENT/ oral surgery f/u. Patient is to f/u with PCP and primary care f/u. I discussed case with attending provider Dr. Fulton who is agreeable to this care plan and discharge. - Lab Data Result diagrams: 05/16/20 13:35 05/16/20 13:01 Lab Results 05/16/20 05/16/20 Range/Units 13:01 13:35 WBC 6.0 (3.8-10.6) k/uL RBC 4.68 (4.30-5.90) m/uL Hgb 15.2 (13.0-17.5) gm/dL Hct 46.0 (39.0-53.0) % MCV 98.4 (80.0-100.0) fL MCH 32.5 (25.0-35.0) pg MCHC 33.1 (31.0-37.0) g/dL RDW 12.4 (11.5-15.5) % Plt Count 136 L (150-450) k/uL Neutrophils % 74 % Lymphocytes % 17 % Monocytes % 5 % Eosinophils % 1 % Basophils % 0 % Neutrophils # 4.5 (1.3-7.7) k/uL Lymphocytes # 1.0 (1.0-4.8) k/uL Monocytes # 0.3 (0-1.0) k/uL Eosinophils # 0.1 (0-0.7) k/uL Basophils # 0.0 (0-0.2) k/uL Sodium 134 L (137-145) mmol/L Potassium 4.3 (3.5-5.1) mmol/L Chloride 101 (98-107) mmol/L Carbon Dioxide 25 (22-30) mmol/L Anion Gap 8 mmol/L BUN 12 (9-20) mg/dL Creatinine 0.71 (0.66-1.25) mg/dL Est GFR (CKD-EPI)AfAm >90 (>60 ml/min/1.73 sqM) Est GFR (CKD-EPI)NonAf >90 (>60 ml/min/1.73 sqM) Glucose 105 H (74-99) mg/dL Calcium 9.3 (8.4-10.2) mg/dL Total Bilirubin 1.3 (0.2-1.3) mg/dL AST 33 (17-59) U/L ALT 22 (4-49) U/L Alkaline Phosphatase 46 (38-126) U/L Total Protein 7.4 (6.3-8.2) g/dL Albumin 4.4 (3.5-5.0) g/dL Disposition Clinical Impression: Jaw pain, Constipation, Distal paresthesia Disposition: HOME SELF-CARE Condition: Good Additional Instructions: Please use medication as discussed. Please follow-up with family doctor in the next 2 days. ENT, Neurology and dentist. Please return to emergency room if the symptoms increase or worsen or for any other concerns. Prescriptions: Amoxic-Pot Clav 875-125Mg [Augmentin 875-125] 1 tab PO Q12HR 7 Days #14 tab Is patient prescribed a controlled substance at d/c from ED?: No Referrals: Katharine Miller MD [Primary Care Provider] - 1-2 days Reinier Coreas MD [STAFF PHYSICIAN] - 1-2 days Orville Melendez DDS [STAFF PHYSICIAN] - 1-2 days Time of Disposition: 15:45
[2020-05-16 15:56] VITALS: BP 115/86; PULSE 78; RESP 16; TEMP 98
== END 2020-05-16 15:54 | disposition home or self-care (01) ==
LOC: EC 12:05
DX: K59.00 Constipation, unspecified (principal); R20.2 Paresthesia of skin; R68.84 Jaw pain; I10 Essential (primary) hypertension; I48.91 Unspecified atrial fibrillation; E07.9 Disorder of thyroid, unspecified; F17.200 Nicotine dependence, unspecified, uncomplicated; Z79.890 Hormone replacement therapy; Z79.01 Long term (current) use of anticoagulants; Z79.899 Other long term (current) drug therapy; Z79.82 Long term (current) use of aspirin
CPT/HCPCS: 36415; 70140; 74018; 80053; 85025; 99284

== ENCOUNTER 2020-10-17 11:14 | Emergency (ER) | payer OTHER ==
[2020-10-17 11:26] VITALS: RESP 18; TEMP 98
[2020-10-17] MEDS ORDERED: HYDROmorphone 1 MG/ML 1 ML SYRINGE IVP STA (12:26)
[2020-10-17] MEDS ORDERED: SODIUM CHLORIDE 0.9% 1,000 ML IV STA (12:38)
--- NOTE | 2020-10-17 12:39 | ED ---
General Adult HPI - General Chief complaint: Recheck/Abnormal Lab/Rx Stated complaint: Mandible pain Time Seen by Provider: 10/17/20 12:00 Source: patient, family, RN notes reviewed Mode of arrival: ambulatory Limitations: no limitations - History of Present Illness Initial comments: Patient is a pleasant 50-year-old male presenting to the emergency Department with complaints of left sided mandible pain. Onset of symptoms was around 6 or 7 months ago. Symptoms are intermittent. Symptoms usually last around a day or so. One previous episode did last a week or 2. Patient has had multiple episodes since onset. Episode this time started around a week ago. Discomfort has worsened the past couple of days. Patient has been evaluated for this. Patient has seen dentist and primary care physician. They did question a nerve problem. Discomfort increases with movement. Patient has had limited oral intake the last 2 days secondary to pain. Patient states it even hurts to take his medications. Patient has all of his teeth removed. Patient has chronic neck pain. - Related Data Home Medications Medication Instructions Recorded Confirmed Aspirin 81 mg PO DAILY 01/05/16 10/17/20 Metoprolol Tartrate [Lopressor] 50 mg PO BID 05/31/19 10/17/20 Atorvastatin [Lipitor] 40 mg PO HS 11/22/19 10/17/20 Levothyroxine Sodium [Synthroid] 50 mcg PO DAILY 11/22/19 10/17/20 Warfarin [Coumadin] 2.5 mg PO HS 11/22/19 10/17/20 Amiodarone [Cordarone] 100 mg PO DAILY 10/17/20 10/17/20 Tamsulosin HCl [Flomax] 0.4 mg PO HS 10/17/20 10/17/20 Allergies Allergy/AdvReac Type Severity Reaction Status Date / Time No Known Allergies Allergy Verified 10/17/20 12:51 Review of Systems ROS Statement: Those systems with pertinent positive or pertinent negative responses have been documented in the HPI. ROS Other: All systems not noted in ROS Statement are negative. Constitutional: Denies: fever, chills Eyes: Denies: eye pain ENT: Denies: ear pain, throat pain Respiratory: Denies: cough Cardiovascular: Denies: chest pain Endocrine: Denies: fatigue Gastrointestinal: Denies: abdominal pain Genitourinary: Denies: dysuria Musculoskeletal: Denies: back pain Skin: Denies: rash Neurological: Denies: headache, weakness Past Medical History Past Medical History: Atrial Fibrillation, Hypertension, Thyroid Disorder Additional Past Medical History / Comment(s): tachycardia, neck pain, herniation History of Any Multi-Drug Resistant Organisms: None Reported Past Surgical History: Orthopedic Surgery Additional Past Surgical History / Comment(s): cardiac ablation Past Psychological History: No Psychological Hx Reported Smoking Status: Current every day smoker Past Alcohol Use History: None Reported Past Drug Use History: None Reported General Exam Limitations: no limitations General appearance: alert, in no apparent distress Head exam: Present: normocephalic Eye exam: Present: normal appearance ENT exam: Present: normal oropharynx, TM's normal bilaterally, other (Dentition has been removed. Patient does have tenderness left anterior mandible interior exterior. No swelling. No erythema.) Neck exam: Present: normal inspection Respiratory exam: Present: normal lung sounds bilaterally Cardiovascular Exam: Present: regular rate, normal rhythm GI/Abdominal exam: Present: soft. Absent: tenderness Extremities exam: Present: normal inspection Neurological exam: Present: alert Psychiatric exam: Present: normal affect, normal mood Skin exam: Present: normal color Course Vital Signs 10/17/20 10/17/20 11:22 12:27 Temperature 98.0 F Pulse Rate 100 56 L Respiratory 18 18 Rate Blood Pressure 127/90 139/79 O2 Sat by Pulse 99 98 Oximetry Medical Decision Making - Medical Decision Making Patient reevaluated and resting comfortably in bed. Patient and family updated on results and need for follow-up. - Lab Data Result diagrams: 10/17/20 12:28 10/17/20 12:28 Lab Results 10/17/20 10/17/20 Range/Units 12:28 12:28 WBC 7.1 (3.8-10.6) k/uL RBC 4.83 (4.30-5.90) m/uL Hgb 16.0 (13.0-17.5) gm/dL Hct 47.1 (39.0-53.0) % MCV 97.5 (80.0-100.0) fL MCH 33.1 (25.0-35.0) pg MCHC 34.0 (31.0-37.0) g/dL RDW 12.0 (11.5-15.5) % Plt Count 133 L (150-450) k/uL MPV 7.6 Neutrophils % 71 % Lymphocytes % 22 % Monocytes % 5 % Eosinophils % 1 % Basophils % 1 % Neutrophils # 5.0 (1.3-7.7) k/uL Lymphocytes # 1.5 (1.0-4.8) k/uL Monocytes # 0.4 (0-1.0) k/uL Eosinophils # 0.0 (0-0.7) k/uL Basophils # 0.1 (0-0.2) k/uL Sodium 138 (137-145) mmol/L Potassium 4.0 (3.5-5.1) mmol/L Chloride 105 (98-107) mmol/L Carbon Dioxide 23 (22-30) mmol/L Anion Gap 10 mmol/L BUN 14 (9-20) mg/dL Creatinine 0.77 (0.66-1.25) mg/dL Est GFR (CKD-EPI)AfAm >90 (>60 ml/min/1.73 sqM) Est GFR (CKD-EPI)NonAf >90 (>60 ml/min/1.73 sqM) Glucose 88 (74-99) mg/dL Calcium 9.4 (8.4-10.2) mg/dL Magnesium 2.0 (1.6-2.3) mg/dL Total Bilirubin 1.2 (0.2-1.3) mg/dL AST 23 (17-59) U/L ALT 16 (4-49) U/L Alkaline Phosphatase 52 (38-126) U/L Total Protein 7.5 (6.3-8.2) g/dL Albumin 4.5 (3.5-5.0) g/dL - Radiology Data Radiology results: image reviewed (Mandible x-ray reveals no acute process) Disposition Clinical Impression: Facial pain Disposition: HOME SELF-CARE Condition: Stable Instructions (If sedation given, give patient instructions): Trigeminal Neuralgia (ED) Additional Instructions: Please follow-up with primary care physician in the next day or 2 for recheck. Consider ENT and neurology evaluation. Discuss potential prescription for Neurontin or other similar medication. Return for weakness, fever, redness, worsening or changing symptoms or other concerns. Is patient prescribed a controlled substance at d/c from ED?: No Referrals: Katharine Miller MD [Primary Care Provider] - 1-2 days Bharathi Rousseau DO [Doctor of Osteopathic Medicine] - 1-2 days Time of Disposition: 14:11
[2020-10-17 12:42] LABS: Basophils # (A) 0.1 k/uL (0-0.2); Basophils % (A) 1 %; Eosinophils % (A) 1 %; HCT 47.1 % (39.0-53.0); Lymphocytes # (A) 1.5 k/uL (1.0-4.8); Lymphocytes % (A) 22 %; MCH 33.1 pg (25.0-35.0); MCV 97.5 fL (80.0-100.0); Mean Platelet Volume 7.6; Monocytes # (A) 0.4 k/uL (0-1.0); Monocytes % (A) 5 %; Neutrophils % (A) 71 %; Platelet Count 133 k/uL (150-450); RBC 4.83 m/uL (4.30-5.90); WBC 7.1 k/uL (3.8-10.6)
[2020-10-17 12:53] LABS: ALT 16 U/L (4-49); AST 23 U/L (17-59); African American GFR (CKD) >90 (>60 ml/min/1.73 sqM); Albumin 4.5 g/dL (3.5-5.0); Alkaline Phosphatase 52 U/L (38-126); Anion Gap 10 mmol/L; Blood Urea Nitrogen 14 mg/dL (9-20); Calcium 9.4 mg/dL (8.4-10.2); Carbon Dioxide 23 mmol/L (22-30); Chloride 105 mmol/L (98-107); Glucose 88 mg/dL (74-99); Non-African American GFR(CKD) >90 (>60 ml/min/1.73 sqM); Sodium 138 mmol/L (137-145); Total Bilirubin 1.2 mg/dL (0.2-1.3); Total Protein 7.5 g/dL (6.3-8.2)
--- NOTE | 2020-10-17 13:49 | XR ---
EXAMINATION TYPE: XR mandible limited 3 views DATE OF EXAM: 10/17/2020 COMPARISON: 05/16/2020 HISTORY: 50 year-old male left mandible pain TECHNIQUE: 3 views FINDINGS: The patient is almost completely patulous. A left maxillary molar and a right mandibular molar remain . The left TMJ is visualized and intact. No osseous destructive process is identified. No acute fract ure identified. Nasal septum midline. Maxillary sinuses appear clear. Patient's frontal mandibular te eth have been removed from the prior exam. IMPRESSION: Only 2 teeth are retained. Patient is otherwise edentulous. No osseous destruction or acute fracture is identified.
[2020-10-17] MEDS ORDERED: ACET/COD 300 MG/30 MG STARTER PACK 6 TAB BTL PO STA (14:07)
[2020-10-17] MEDS ORDERED: GABAPENTIN 300 MG CAP PO STA (14:07)
[2020-10-17 14:29] VITALS: BP 128/84; PULSE 62
== END 2020-10-17 14:33 | disposition home or self-care (01) ==
LOC: EC 11:14
DX: R68.84 Jaw pain (principal); R51.9 Headache, unspecified; I48.91 Unspecified atrial fibrillation; I10 Essential (primary) hypertension; G89.29 Other chronic pain; M54.2 Cervicalgia; E07.9 Disorder of thyroid, unspecified; F17.200 Nicotine dependence, unspecified, uncomplicated; Z79.82 Long term (current) use of aspirin; Z79.890 Hormone replacement therapy; Z79.01 Long term (current) use of anticoagulants; Z79.899 Other long term (current) drug therapy
CPT/HCPCS: 36415; 80053; 83735; 85025; 70100; 96374; 96361 ×2; 99284; J1170

== ENCOUNTER → 2021-12-22 | Outpatient (CLI) | payer MEDICARE, OTHER ==
--- NOTE | 2021-12-22 13:42 | US ---
EXAMINATION TYPE: US thyroid st tissue head/neck DATE OF EXAM: 12/22/2021 COMPARISON: Prior thyroid ultrasound August 24, 2019 CLINICAL HISTORY: E05.90 HYPERTHYROIDISM. hyperthyroidism GLAND SIZE: Right Lobe: 4.7 x 1.8 x 1.4 cm Overall Parenchyma: heterogenous Left Lobe: 4.7 x 1.6 x 1.6 cm Overall Parenchyma: heterogeneous Isthmus Thickness: 0.3 cm NODULES RIGHT: # of nodules measured on right: 0 LEFT: # of nodules measured on left: 0 ISTHMUS: # of nodules measured in the isthmus: 0 Bilateral neck scanned, no evidence of lymphadenopathy. Slightly heterogeneous normal-sized thyroid without discrete nodule. IMPRESSION: As above. No new nodules are evident.
== END | disposition home or self-care (01) ==
LOC: RADUSWWP 12:28
PROVIDERS: ATTEND Internal Medicine
DX: E05.90 Thyrotoxicosis, unspecified without thyrotoxic crisis or storm (principal)
CPT/HCPCS: 76536

== ENCOUNTER → 2022-03-12 | Outpatient (CLI) | payer MEDICARE, OTHER ==
--- NOTE | 2022-03-12 23:20 | CTL ---
EXAMINATION TYPE: CT Low Dose Lung DATE OF EXAM ORDERED: 03/12/2022 HISTORY: Nicotine dependence. Lung cancer screening CT DLP: 103.[address] CTDI: 2.50 mGy Automated exposure control for dose reduction was used. SCREENING VISIT: Baseline COMPARISON: CT dated 03/25/2020 TECHNIQUE: Low dose computed tomography scan was performed through the chest at 1 mm thick sections a nd reconstructed images in multiple planes at 1 mm and [address] DIAGNOSTIC QUALITY: Satisfactory FINDINGS: LUNG NODULES: None. LUNGS: COPD: Severity: Mild Fibrosis: Severity: Mild Lymph nodes: No pathologically enlarged lymph nodes. Other findings: None RIGHT PLEURAL SPACE: Effusion: None Calcification: None Thickening: None Pneumothorax: None LEFT PLEURAL SPACE: Effusion: None Calcification: None Thickening: None Pneumothorax: None HEART: Heart Size: Normal Coronary Calcification: Moderate Pericardial Effusion: None OTHER FINDINGS: Upper abdomen: None Bony thorax: Degenerative changes of the thoracic spine. Supraclavicular region: None Other: Scattered arterial atherosclerotic calcifications. IMPRESSION: No definite lung nodule or suspicious lesion. Incidental findings as described above. CT LUNG RAD AND CT CHEST RECOMMENDATION: Lung-Rad 1 Negative: Continue annual screening with LDCT in 12 months. S Modifier (other clinically significant findings): None.
== END | disposition home or self-care (01) ==
LOC: RADCTMAIN 17:27
PROVIDERS: ATTEND Internal Medicine
DX: Z12.2 Encounter for screening for malignant neoplasm of respiratory organs (principal); Z87.891 Personal history of nicotine dependence
CPT/HCPCS: 71271

== ENCOUNTER → 2023-05-24 | Outpatient (CLI) | payer MEDICARE, OTHER ==
--- NOTE | 2023-05-26 13:39 | CTL ---
EXAMINATION TYPE: CT Low Dose Lung DATE OF EXAM ORDERED: 05/24/2023 HISTORY: 52-year-old male Z12.71 ENC NTR SCREEN FOR MALIGNANT NEOPLASM OF RES. Current smoker with ap proximately 30 pack year history. Lung cancer screening CT DLP: 101.[address] CTDI: 2.7 mGy Automated exposure control for dose reduction was used. SCREENING VISIT: Annual follow-up COMPARISON: 03/12/2022 TECHNIQUE: Low dose computed tomography scan was performed through the chest with coronal and sagitta l reconstructions. CT DIAGNOSTIC QUALITY: Satisfactory FINDINGS: The heart is normal size without pericardial effusion. LAD coronary artery calcifications are present . Borderline aneurysm ascending aorta 4.0 cm. Variant direct takeoff of the left vertebral artery direc tly from the aortic arch. Borderline enlarged caliber to the main right and left pulmonary arteries u p to 2.5 cm. No thoracic lymphadenopathy by CT size criteria. Mild emphysematous change. No consolidation or pleural effusion. Some minimal nonspecific subpleural reticular change periphery of the right lower lobe is unchanged. No suspicious pulmonary nodules are seen. Visualized upper abdomen shows no gross abnormality. [facility] lower thoracic spine. IMPRESSION: 1. Lung RADS 1, negative. No suspicious pulmonary nodules. 2. COPD with mild emphysema. 3. Borderline aneurysm ascending aorta at 4.[address] LUNG RAD AND CT CHEST RECOMMENDATION: Lung-Rad 1 Negative: Continue annual screening with LDCT in 12 months. S Modifier (other clinically significant findings): None
== END | disposition home or self-care (01) ==
LOC: RADCTMAIN 14:20
PROVIDERS: ATTEND Internal Medicine
DX: Z12.2 Encounter for screening for malignant neoplasm of respiratory organs (principal); J43.9 Emphysema, unspecified; I71.21 Aneurysm of the ascending aorta, without rupture; F17.210 Nicotine dependence, cigarettes, uncomplicated
CPT/HCPCS: 71271

== ENCOUNTER → 2024-06-17 | Outpatient (CLI) | payer MEDICARE, OTHER ==
--- NOTE | 2024-06-17 15:23 | CTL ---
EXAMINATION TYPE: CT Low Dose Lung DATE OF EXAM ORDERED: 06/17/2024 HISTORY: 53-year-old male current smoker with 35 pack-year history. Lung cancer screening. Z12.2 LUNG CA SCREEN F17.[address] DLP: [address] CTDI: 1.72 mGy Automated exposure control for dose reduction was used. SCREENING VISIT: Annual follow-up COMPARISON: 05/24/2023 TECHNIQUE: Low dose computed tomography scan was performed through the chest at 1 mm thick sections a nd reconstructed images in multiple planes at 1 mm and [address] DIAGNOSTIC QUALITY: Satisfactory FINDINGS: The heart is normal size without pericardial effusion. LAD coronary artery calcifications are present . Possible aneurysm aortic root at 4.4 cm, unchanged. 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 Borderline caliber main right and left pulmonary arteries measuring up to 2.5 cm. No thoracic lymphadenopathy by CT size criteria. Mild diffuse bronchial wall thickening. No consolidation or pleural effusion. Visualized upper abdomen shows no gross abnormality. Bones: Visualized lower thoracic spine. Slight accentuated lower thoracic kyphosis. IMPRESSION: 1. Lung RADS 1, negative. No suspicious pulmonary nodules. Recommend smoking cessation. 2. There may be aneurysm of the aortic root at 4.4 cm, unchanged in retrospect. Mild ascending aortic aneurysm at 4.1 cm versus 4.0 cm, previously. 3. LAD coronary artery calcifications. CT LUNG RAD AND CT CHEST RECOMMENDATION: Lung-Rad 1 Negative: Continue annual screening with LDCT in 12 months. S Modifier (other clinically significant findings): S, consider vascular surgery referral for subsequ ent surveillance follow-up of the ascending aorta. [facility], , 06/17/2024 3:20 PM
== END | disposition home or self-care (01) ==
LOC: RADCTMAIN 12:25
PROVIDERS: ATTEND Internal Medicine
CPT/HCPCS: 71271

== ENCOUNTER 2024-12-30 09:19 | Day surgery (SDC) | payer MEDICARE ==
[2024-12-29 09:46] VITALS: BMI 21.8
[2024-12-30 10:02] VITALS: RESP 16; TEMP 97.5
[2024-12-30 10:10] LABS: Glucose,Whole Blood 107 mg/dL (70-110)
[2024-12-30] MEDS: LACTATED RINGERS 1,000 ML IV SCH (10:11)
[2024-12-30] MEDS ORDERED: PROPOFOL 10 MG/ML 20 ML VIAL IV ONE (10:59)
--- NOTE | 2024-12-30 11:16 | P.PCN ---
Date of Procedure: 12/30/24 Procedure(s) Performed: BRIEF HISTORY: Patient is a 54-year-old pleasant white male scheduled for an elective colonoscopy as a part of screening for colon cancer/positive Cologuard. He also has a family Struve colon cancer diagnosed in his father at age 60. PROCEDURE PERFORMED: Colonoscopy with snare polypectomy. PREOPERATIVE DIAGNOSIS: Screening for colon cancer/positive Cologuard and family history of colon cancer. IV sedation per Anesthesia. PROCEDURE: After informed consent was obtained, the patient, was brought into the endoscopy unit. IV sedation was administered by Anesthesia under continuous monitoring. Digital rectal examination was normal. Initially the Olympus CF-160 flexible video colonoscope was then inserted in the rectum, gradually advanced into the cecum without any difficulty. Careful examination was performed as the scope was gradually being withdrawn. Ileocecal valve and the appendiceal orifice were visualized and appeared normal. Prep was excellent. Mucosa of the cecum, ascending colon, appeared normal. The transverse colon there was a 7 mm polyp that was removed by cold snare polypectomy. Rest of the transverse colon, descending colon, sigmoid colon, and rectum appeared normal. Retroflexion was performed in the rectum and no lesions were seen. The patient tolerated the procedure well. IMPRESSION: 7 mm transverse colon polyp status post cold snare polypectomy Rest of the colon appeared normal RECOMMENDATIONS: Findings of this examination were discussed with the patient as well as his family.. He was advised to follow-up with the biopsy results. Recommended repeat colonoscopy in 5 years because of a family history of colon cancer
[2024-12-30 11:30] VITALS: BP 98/62; PULSE 78
== END 2024-12-30 11:50 | disposition home or self-care (01) ==
LOC: ORWHC2ENDO 09:19
PROVIDERS: ATTEND Internal Medicine Gastroenterology
DX: Z12.11 Encounter for screening for malignant neoplasm of colon (principal); Z80.0 Family history of malignant neoplasm of digestive organs; D12.3 Benign neoplasm of transverse colon
CPT/HCPCS: 88305; 45385; J2704